=== PATIENT | female | born 1985 | race Caucasian/White ===

== ENCOUNTER → 2017-09-25 | Outpatient (CLI) | payer MEDICARE, OTHER ==
--- NOTE | 2017-09-26 09:51 | USB ---
Reason for exam: additional evaluation requested from abnormal screening. History: Patient is nulliparous. Family history of breast cancer in paternal grandmother at age 70. Physical Findings: Nurse did not find any significant physical abnormalities on exam. US Breast RT Right complete breast ultrasound includes all four quadrants, the retroareolar region and axilla. Finding demonstrates a 0.3 x 0.3 x 0.2cm oval, cystic lesion at 1 o'clock, a 0.4 x 0.5 x 0.3cm oval, cystic cluster at 4 o'clock and a 1.8 x 1.7 x 1.3cm node at the axilla. These results were verbally communicated with the patient and result sheet given to the patient on 09/25/17. ASSESSMENT: Probably benign, BI-RAD 3 RECOMMENDATION: Ultrasound of the right breast in 6 months.
== END | disposition home or self-care (01) ==
LOC: RADUSWWP 07:00
PROVIDERS: ATTEND Family Medicine
DX: N64.4 Mastodynia (principal); N63.10 Unspecified lump in the right breast, unspecified quadrant

== ENCOUNTER 2019-02-14 21:54 | Outpatient (CLI) | payer OTHER ==
[2019-02-14 23:19] LABS: Appearance,Urine Cloudy (Clear); Bacteria,Urine Occasional /hpf; Bilirubin,Urine Negative (Negative); Blood,Urine Negative (Negative); Color,Urine Yellow; Glucose,Urine (UA) Negative (Negative); Ketones,Urine 2+ (Negative); Leukocyte Esterase,Urine Trace (Negative); Mucus,Urine Occasional /hpf; Nitrite,Urine Negative (Negative); PH, Urine 5.5 (5.0-8.0); Protein,Urine Negative (Negative); RBC,Urine 1 /hpf (0-5); Specific Gravity,Urine 1.012 (1.001-1.035); Squamous Epithelial Cell,Urine 4 /hpf (0-4); Urobilinogen,Urine <2.0 mg/dL (<2.0); WBC,Urine 6 /hpf (0-5)
[2019-02-15] MEDS ORDERED: ONDANSETRON 4 MG/2 ML VIAL IVP STA (00:21)
[2019-02-15] MEDS ORDERED: LACTATED RINGERS 1,000 ML IV SCH (00:30)
[2019-02-15 00:50] LABS: Basophils # (A) 0.1 k/uL (0-0.2); Basophils % (A) 1 %; Eosinophils % (A) 0 %; HCT 37.8 % (34.0-46.0); HGB 12.6 gm/dL (11.4-16.0); Lymphocytes # (A) 0.6 k/uL (1.0-4.8); Lymphocytes % (A) 7 %; MCH 29.9 pg (25.0-35.0); MCHC 33.3 g/dL (31.0-37.0); MCV 89.9 fL (80.0-100.0); Mean Platelet Volume 8.2; Monocytes # (A) 0.2 k/uL (0-1.0); Monocytes % (A) 2 %; Neutrophils # (A) 8.2 k/uL (1.3-7.7); Neutrophils % (A) 90 %; Platelet Count 237 k/uL (150-450); RBC 4.21 m/uL (3.80-5.40); RDW 13.3 % (11.5-15.5); WBC 9.1 k/uL (3.8-10.6)
[2019-02-15 01:17] LABS: African American GFR (CKD) >90 (>60 ml/min/1.73 sqM); Anion Gap 11 mmol/L; Blood Urea Nitrogen 8 mg/dL (7-17); Calcium 9.3 mg/dL (8.4-10.2); Carbon Dioxide 19 mmol/L (22-30); Chloride 104 mmol/L (98-107); Glucose 112 mg/dL (74-99); Non-African American GFR(CKD) >90 (>60 ml/min/1.73 sqM); Potassium 3.8 mmol/L (3.5-5.1); Sodium 134 mmol/L (137-145)
[2019-02-15 01:27] VITALS: BP 126/66; PULSE 114; RESP 18; TEMP 97.6
--- NOTE | 2019-02-21 08:02 | P.MSEPDOC ---
Presenting Problems - Arrival Data Date of Arrival on Unit: 02/15/19 Time of Arrival on Unit: 21:54 Mode of Transport: Ambulatory - Complaint OB-Reason for Admission/Chief Complaint: Pain Medical History - Information : 2 Para: 0 Term: 0 : 0 Abortions: Spontaneous or Elective: 0 Number of Living Children: 0 - Gestational Age Gestational Age by JUWAN (wks/days): 21 Weeks and 6 Days Review of Systems - Review of Systems Constitutional: No problems Breast: No problems ENT: No problems Cardiovascular: No problems Respiratory: No problems Gastrointestinal: No problems Genitourinary: No problems Musculoskeletal: No problems Neurological: No problems Skin: No problems Vital Signs - Temperature Temperature: 97.6 F Temperature Source: Temporal Artery Scan - Pulse Right Brachial Pulse Rate: 114 Pulse Assessment Method: Automatic Cuff - Respirations Respiratory Rate: 18 Oxygen Delivery Method: Room Air - Blood Pressure Right Arm Blood Pressure: 126/66 Blood Pressure Mean: 86 Blood Pressure Source: Automatic Cuff Medical Screen Scoring (Pre) - Cervical Exam Dilation: Exam Deferred Effacement: Exam Deferred Membranes: Intact - Uterine Contractions Frequency: N/A - Maternal Vital Signs Maternal Temperature: N/A Maternal Blood Pressure: N/A Signs of Preeclampsia: N/A Maternal Respirations: N/A - Maternal Trauma Maternal Trauma: N/A - Assessment - Baby A Baseline FHR: 145 Heart Rate - NICHD Category: Category I (Normal) = 0 Position: N/A Station: N/A - Total Score - Baby A Total Score - Baby A: 0 - Total Score - Baby B Total Score - Baby B: 0 - Total Score - Baby C Total Score - Baby C: 0 - Level of Risk - Baby A Level of Risk - Baby A: Low (0-5) - Level of Risk - Baby B Level of Risk - Baby B: Low (0-5) - Level of Risk - Baby C Level of Risk - Baby C: Low (0-5) Physician Notification (Pre) - Physician Notified Physician Notified Date: 02/14/19 Physician Notified Time: 22:29 New Order Received: Yes - Notification Comment Comment: send ua, call with results Medical Screen Scoring (Post) - Cervical Exam Dilation: Exam Deferred Effacement: Exam Deferred Membranes: Intact - Uterine Contractions Frequency: N/A Duration: N/A Intensity: N/A - Maternal Vital Signs Maternal Temperature: N/A Signs of Preeclampsia: N/A Maternal Respirations: N/A - Pain Assessment Pain Scale Used: Numeric (1 - 10) Pain Intensity: 0 - Maternal Trauma Maternal Trauma: N/A - Assessment - Baby A Heart Rate: 145 Heart Rate - NICHD Category: Category I (Normal) = 0 Position: N/A Station: N/A - Total Score Total Score - Baby A: 0 Total Score - Baby B: 0 Total Score - Baby C: 0 - Post Treatment Level of Risk Post Treatment Level of Risk - Baby A: Low (0-5) Post Treatment Level of Risk - Baby B: Low (0-5) Post Treatment Level of Risk - Baby C: Low (0-5) Physician Notification (Post) - Physician Notified Physician Notified Date: 02/15/19 Physician Notified Time: 01:38 Physician/Practitioner Notified:: Dr. Peguero Spoke With: Dr. Peguero New Order Received: Yes - Notification Comment Comment: Pt was treated with 1 liter of LR, 4 mg of zofran iv, cbc and cmp, labs reported, pt feeling better, discharge pt home follow up at next scheduled Feb 25 Disposition - Disposition OB Disposition: Physician follow up in office, Triage, Discharge to home, Written follow up instructions reviewed Discharge Date: 02/15/19 Discharge Time: 01:55 I agree with the RN Medical Screening Exam: Yes Risk & Benefit of care provided described in d/c instruction: Yes Diagnosis: DEHYDRATION
== END 2019-02-15 01:55 | disposition home or self-care (01) ==
LOC: FBPOP 21:54
PROVIDERS: ATTEND Obstetrics & Gynecology
DX: O99.282 Endocrine, nutritional and metabolic diseases complicating pregnancy, second trimester (principal); Z3A.21 21 weeks gestation of pregnancy
CPT/HCPCS: 99214; 96361; 96374; 80048; 85025; 81001; J2405

== ENCOUNTER 2019-06-19 04:00 | Inpatient (IN) | payer MEDICARE, OTHER ==
[2019-06-19] MEDS ORDERED: METHYLERGONOVINE 0.2 MG/ML 1 ML AMP IM PRN (04:21)
[2019-06-19] MEDS ORDERED: CARBOPROST TROMETHAMINE 250 MCG/ML 1 ML AMP IM PRN (04:21)
[2019-06-19] MEDS ORDERED: TERBUTALINE 1 MG/ML VIAL SQ PRN (04:21)
[2019-06-19] MEDS ORDERED: LIDOCAINE 0.5% (PF) 5 MG/ML (50 ML SDV) SQ PRN (04:21)
[2019-06-19] MEDS ORDERED: OXYTOCIN 10 UNIT/ML 1 ML VIAL IM PRN (04:21)
[2019-06-19] MEDS: LACTATED RINGERS 1,000 ML IV SCH (04:30)
[2019-06-19] MEDS ORDERED: PENICILLIN G POTASSIUM 5,000,000 UNIT in DEXTROSE 5% IN WATER 100 ML IVPB ONE ×2 (04:30)
[2019-06-19] MEDS ORDERED: BUTORPHANOL 1 MG/ML 1 ML VIAL IV PRN (04:31)
[2019-06-19 04:40] LABS: Basophils % (A) 0 %; Eosinophils # (A) 0.1 k/uL (0-0.7); Eosinophils % (A) 1 %; HCT 46.1 % (34.0-46.0); HGB 15.3 gm/dL (11.4-16.0); Lymphocytes # (A) 1.5 k/uL (1.0-4.8); Lymphocytes % (A) 9 %; MCH 30.6 pg (25.0-35.0); MCHC 33.2 g/dL (31.0-37.0); MCV 92.2 fL (80.0-100.0); Mean Platelet Volume 8.6; Monocytes # (A) 0.3 k/uL (0-1.0); Monocytes % (A) 2 %; Neutrophils # (A) 14.6 k/uL (1.3-7.7); Neutrophils % (A) 87 %; Platelet Count 255 k/uL (150-450); RBC 5.01 m/uL (3.80-5.40); RDW 14.3 % (11.5-15.5); WBC 16.8 k/uL (3.8-10.6)
[2019-06-19 04:48] LABS: Glucose,Whole Blood 115 mg/dL (75-99)
--- NOTE | 2019-06-19 07:43 | P.HPOB ---
History of Present Illness H&P Date: 06/19/19 Chief Complaint: Strong regular uterine contractions This is a 34-year-old white female 2 para 0010 EDC 06/22/2019 at 39-4/7 weeks' gestation. Patient presents with strong regular uterine contractions, in active labor. Fetus is been active throughout the . Past medical history is significant for bipolar disorder, and positive HPV. Past surgical history tonsillectomy and adenoidectomy, cholecystectomy, appendectomy, hernia repair, LEEP procedure. Current medications vitamins daily. ALLERGIES Depakote, ALLERGIC reaction not listed. Family history significant for hypertension diabetes and depression. Reproductive history missed AB 2003. Social history former tobacco smoker one half pack per day, denies alcohol tobacco or drug use with . Patient is , is present. Obstetric history is significant for blood type O+, group B strep cultures positive. Rubella status immune. VDRL testing, urine culture, hepatitis B surface antigen, HIV testing, gonorrhea and chlamydia cultures all negative. Three-hour GTT consistent with gestational diabetes. On exam patient is 5 foot 2 inches, 224 pounds, blood pressure 116/63. General physical exam is within normal limits. Cervix is 9-1/2 cm dilated, vertex prese ntation, 100% effaced, 0 station. Artificial amniorrhexis reveals clear fluid. heart rate is consistent with reactive NST. Impression: 39-4/7 weeks intrauterine , active labor. All signs reassuring. Gestational diabetes, blood sugar on admission 1:15. Plan: Continue close maternal and surveillance. Anticipate normal spontaneous vaginal delivery. Review of Systems Constitutional: Reports as per HPI Past Medical History Past Medical History: Asthma, GERD/Reflux Additional Past Medical History / Comment(s): Hx of HPV stage 1, hx migraines, sports induced asthma, GDM 12/25/18 History of Any Multi-Drug Resistant Organisms: None Reported Past Surgical History: Adenoidectomy, Appendectomy, Hernia Repair, Tonsillectomy Additional Past Surgical History / Comment(s): surgery for HPV Past Anesthesia/Blood Transfusion Reactions: No Reported Reaction Past Psychological History: ADD/ADHD, Anxiety, Bipolar Smoking Status: Former smoker Past Alcohol Use History: Occasional Additional Past Alcohol Use History / Comment(s): smokes 1/2 PPD since age 12 Past Drug Use History: None Reported - Past Family History Mother Family Medical History: No Reported History Medications and Allergies Home Medications Medication Instructions Recorded Confirmed Type Koo-Cqpw-Gvbsy Acid 1 cap PO DAILY 12/25/18 06/19/19 History [-U Capsule (formulary)] Insulin Detemir (Levemir) [Levemir] 12 unit SQ HS 06/19/19 06/19/19 History Allergies Allergy/AdvReac Type Severity Reaction Status Date / Time divalproex sodium Allergy Swelling Verified 02/14/19 22:06 [From Depakote] Exam Vital Signs Temp Pulse Resp BP 06/19/19 04:26 96.9 F L 88 18 116/63 Intake and Output 06/18/19 06/19/19 06/19/19 22:59 06:59 14:59 Other: # Voids 1 Weight 101.605 kg See dictation under HPI please Results Result Diagrams: 06/19/19 04:30 Abnormal Lab Results - Last 24 Hours (Table) 06/19/19 06/19/19 Range/Units 04:30 04:46 WBC 16.8 H (3.8-10.6) k/uL Hct 46.1 H (34.0-46.0) % Neutrophils # 14.6 H (1.3-7.7) k/uL POC Glucose (mg/dL) 115 H (75-99) mg/dL Assessment and Plan Assessment: 39-4/7 weeks intrauterine , active spontaneous labor. Gestational diabetes on insulin, blood sugar 115. Plan: Continue close maternal and surveillance. Anticipate normal spontaneous vaginal delivery. Time with Patient: Less than 30
[2019-06-19] MEDS: OXYTOCIN 30 UNITS/500 ML NS 30 UNIT in SALINE 1 500ML.BAG IV SCH (08:40)
[2019-06-19] MEDS: PENICILLIN G POTASSIUM 2,500,000 UNIT in DEXTROSE 5% IN WATER 100 ML IVPB SCH ×2 (09:06)
[2019-06-19] MEDS ORDERED: SIMETHICONE 80 MG CHEWABLE PO PRN (09:34)
[2019-06-19] MEDS ORDERED: WITCH HAZEL 1 EACH MED..PAD TOPICAL PRN (09:34)
[2019-06-19] MEDS ORDERED: BENZOCAINE/MENTHOL SPRAY 1 GM/SPRAY AEROSOL TOPICAL PRN (09:34)
[2019-06-19] MEDS ORDERED: diphenhydrAMINE 50 MG CAP PO PRN (09:34)
[2019-06-19] MEDS ORDERED: diphenhydrAMINE 50 MG/ML 1 ML VIAL IVP PRN ×2 (09:34)
[2019-06-19] MEDS ORDERED: HYDROCORTISONE 2.5% RECTAL CREAM 30 GM TUBE RECTAL PRN (09:34)
[2019-06-19] MEDS ORDERED: ACETAMINOPHEN TAB 325 MG TAB PO PRN (09:34)
[2019-06-19] MEDS ORDERED: LANOLIN CREAM 5 GM TUBE TOPICAL PRN (09:34)
[2019-06-19] MEDS ORDERED: ZOLPIDEM 5 MG TAB PO PRN (09:34)
[2019-06-19] MEDS ORDERED: diphenhydrAMINE 25 MG CAP PO PRN (09:34)
--- NOTE | 2019-06-19 09:34 | P.PROBDLV ---
Vaginal Delivery Note - . Vaginal Delivery Note: This is a 34-year-old white female 2 para 0010 EDC 06/22/2019 at 39-4/7 weeks' gestation. Patient was initially scheduled for induction but presented in active spontaneous labor from home. is remarkable for gestational diabetes, on insulin, admitting blood sugar 1:15. Fetus active throughout the . She denied vaginal bleeding or fluid leakage. Please see dictated history and physical for details. On admission patient was 6 cm dilated. Artificial amniorrhexis revealed meconium-stained fluid. A small amount of oxytocin augmentation was given. She progressed well through the first stage of labor and became completely dilated at 0824 hours. heart tones were reassuring throughout the first and second stages of labor. Perineal body was prepped and draped in usual sterile fashion. With excellent maternal expulsive efforts the infant's head delivered occiput anterior. Baby restituted accordingly. The right or anterior shoulder was delivered from underneath the pubic symphysis at which time the oropharynx, nasopharynx, and external nares were all bulb suctioned on the perineal body. Patient was officially delivered of a liveborn female infant at 0912 hours. Umbilical cord was doubly clamped and ligated, she was handed to waiting nurses for evaluation where scores of 9 and 9 at one and 5 minutes respectively were given. Placenta delivered spontaneously, it was inspected and noted to be intact with trivascular cord at 0915 hours. Uterus is then massaged. Careful inspection of the cervix, vagina, perineum, periurethral, and perirectal areas revealed a small second-degree midline perineal laceration. This was repaired in the usual fashion using 3-0 repeat suture. Excellent reapproximation was noted. All sponge needle and enhancement counts are correct at the end of the procedure. Patient and her family are allowed to begin the bonding experience in the LDR. Estimated blood loss 300 mL's.
[2019-06-19] MEDS ORDERED: OXYTOCIN 20 UNITS/1000 ML NS 1,000 ML IV SCH (09:45)
[2019-06-19] MEDS: IBUPROFEN 600 MG TAB PO PRN ×2 (11:14→17:47)
[2019-06-19 14:07] LABS: Hemoglobin A1C 5.7 % (4.0-6.0)
[2019-06-19] MEDS: SENNOSIDES-DOCUSATE SODIUM 1 EACH TAB PO SCH (20:10)
[2019-06-20] MEDS: IBUPROFEN 600 MG TAB PO PRN ×2 (02:13→10:28)
[2019-06-20] MEDS: SENNOSIDES-DOCUSATE SODIUM 1 EACH TAB PO SCH (07:31)
[2019-06-20 07:43] LABS: Basophils % (A) 0 %; Eosinophils % (A) 0 %; HCT 39.7 % (34.0-46.0); HGB 12.9 gm/dL (11.4-16.0); Lymphocytes # (A) 2.3 k/uL (1.0-4.8); Lymphocytes % (A) 20 %; MCH 30.4 pg (25.0-35.0); MCHC 32.5 g/dL (31.0-37.0); MCV 93.5 fL (80.0-100.0); Mean Platelet Volume 8.9; Monocytes # (A) 0.3 k/uL (0-1.0); Monocytes % (A) 3 %; Neutrophils # (A) 8.6 k/uL (1.3-7.7); Neutrophils % (A) 76 %; Platelet Count 232 k/uL (150-450); RBC 4.24 m/uL (3.80-5.40); RDW 14.6 % (11.5-15.5); WBC 11.4 k/uL (3.8-10.6)
--- NOTE | 2019-06-20 08:27 | P.DS ---
Providers Date of admission: 06/19/19 04:00 Expected date of discharge: 06/20/19 Attending physician: Nga Peguero Primary care physician: Stated None Hospital Course: This is a 34-year-old white female 2 para 0010 EDC 07/09/2019 at 39-4/7 weeks' gestation. Patient presented in active spontaneous labor. is remarkable for gestational diabetes, on insulin with good blood sugar control. Blood sugar on admission 1:15. Rubella status immune, blood type O+. Rupee strep cultures positive. Please see admitting H&P for details. Artificial amniorrhexis revealed clear fluid. Patient went on to deliver a liveborn female with scores of 9 and 9 at one and 5 minutes respectively. There was a small second-degree laceration easily repaired, estimated blood loss 300 mL's. weighed 3100 g or 6 lbs. 13 oz. Please see dictated delivery note for details. This morning the patient is doing well. She is voiding, ambulating and passing flatus without difficulty. Vital signs are stable and she is afebrile. Fundus is firm and in the midline, symmetric and 18 week size. Extremities are negative for edema. Chest is clear in all nails. Winger infant is doing well. Patient is judged to be in very good condition for discharge home. She will follow-up with me in the office in 6 weeks. I have reminded her no intercourse, tampons or douching. I have given her prescription for a double electric breast pump, breast-feeding appears to be going well. She will continue taking her vitamins daily. She will use [id number] Advil or Aleve, or Motrin as needed for pain. I've asked her to call me with any fevers shakes or chills, foul smelling or copious lochia, with the passage of large blood clots with any pain not alleviated by [id number] products, or indeed with any concerns. We will proceed with a 2 hour GTT for blood sugar testing at the 6 week visit. Patient Condition at Discharge: Good Plan - Discharge Summary Discharge Rx Participant: No New Discharge Prescriptions: No Action Xvj-Ftck-Asyyc Acid [-U Capsule (formulary)] 1 cap PO DAILY Insulin Detemir (Levemir) [Levemir] 12 unit SQ HS Discharge Medication List Tzy-Cxpr-Sznxh Acid [-U Capsule (formulary)] 1 cap PO DAILY 12/25/18 [History] Insulin Detemir (Levemir) [Levemir] 12 unit SQ HS 06/19/19 [History] Follow up Appointment(s)/Referral(s): Nga Peguero MD [STAFF PHYSICIAN] - 6 Weeks
[2019-06-20 08:49] VITALS: BP 115/76; PULSE 81; RESP 18; TEMP 99.9
[2019-06-20] MEDS: PENICILLIN G POTASSIUM 2,500,000 UNIT in DEXTROSE 5% IN WATER 100 ML IVPB SCH ×6 (08:54→09:07)
[2019-06-20] MEDS: LACTATED RINGERS 1,000 ML IV SCH ×2 (08:55→08:56)
[2019-06-20] MEDS: OXYTOCIN 30 UNITS/500 ML NS 30 UNIT in SALINE 1 500ML.BAG IV SCH (08:57)
== END 2019-06-20 10:39 | disposition home or self-care (01) | DRG 806 ==
LOC: 4FBP 04:00
PROVIDERS: ADMIT Obstetrics & Gynecology; ATTEND Obstetrics & Gynecology
PROC: 10E0XZZ Delivery of Products of Conception, External Approach (ICD-10-PCS; principal; 2019-06-19)
PROC: 0KQM0ZZ Repair Perineum Muscle, Open Approach (ICD-10-PCS; principal; 2019-06-19)
DX: O24.424 Gestational diabetes mellitus in childbirth, insulin controlled (principal); O99.354 Diseases of the nervous system complicating childbirth; Z37.0 Single live birth; O77.0 Labor and delivery complicated by meconium in amniotic fluid; O70.1 Second degree perineal laceration during delivery; G43.909 Migraine, unspecified, not intractable, without status migrainosus; K21.9 Gastro-esophageal reflux disease without esophagitis; O99.62 Diseases of the digestive system complicating childbirth; Z86.19 Personal history of other infectious and parasitic diseases; Z87.09 Personal history of other diseases of the respiratory system; Z86.59 Personal history of other mental and behavioral disorders; Z87.891 Personal history of nicotine dependence; Z3A.39 39 weeks gestation of pregnancy; Z90.49 Acquired absence of other specified parts of digestive tract; Z79.4 Long term (current) use of insulin; Z81.8 Family history of other mental and behavioral disorders; Z82.49 Family history of ischemic heart disease and other diseases of the circulatory system; Z83.3 Family history of diabetes mellitus
CPT/HCPCS: 83036; 85025; 86850; 86900; 86901

== ENCOUNTER → 2020-08-02 | Outpatient (CLI) | payer OTHER ==
--- NOTE | 2020-08-02 08:48 | US ---
EXAMINATION TYPE: US axilla RT DATE OF EXAM: 08/02/2020 COMPARISON: NONE CLINICAL HISTORY: R22.31 lump right axilla. Axilla lump / thickening x years. Patient states she swe ats more in the right axilla compared to left. Area of concern scanned. No prominent masses or lesions seen. Contralateral images seen. IMPRESSION: There is no correlate for the palpable abnormality of the right axilla. Clinical correlation is recom mended. If there is any palpable abnormality of the breast, bilateral diagnostic mammogram is recomme nded given the patient is over age 30. Otherwise, mammograms beginning at age 40 are recommended. BI-RADS 1, negative.
== END | disposition home or self-care (01) ==
LOC: RADUSWWP 07:32
PROVIDERS: ATTEND Family Medicine
DX: R22.31 Localized swelling, mass and lump, right upper limb (principal)

== ENCOUNTER 2021-05-18 07:14 | Inpatient (IN) | payer OTHER ==
[2021-05-18] MEDS ORDERED: PENICILLIN G POTASSIUM 5,000,000 UNIT in DEXTROSE 5% IN WATER 100 ML IVPB STA ×2 (07:44)
[2021-05-18] MEDS ORDERED: METHYLERGONOVINE 0.2 MG/ML 1 ML AMP IM PRN (07:44)
[2021-05-18] MEDS ORDERED: CARBOPROST TROMETHAMINE 250 MCG/ML 1 ML AMP IM PRN (07:44)
[2021-05-18] MEDS ORDERED: LIDOCAINE 1% (PF) 10 MG/ML (30 ML SDV) SQ PRN (07:44)
[2021-05-18] MEDS ORDERED: TERBUTALINE 1 MG/ML VIAL SQ PRN (07:44)
[2021-05-18] MEDS ORDERED: OXYTOCIN 10 UNIT/ML 1 ML VIAL IM PRN (07:44)
[2021-05-18] MEDS ORDERED: LACTATED RINGERS 1,000 ML IV SCH (07:45)
--- NOTE | 2021-05-18 07:57 | P.HPOB ---
History of Present Illness H&P Date: 05/18/21 Chief Complaint: Strong regular uterine contractions This is a 35-year-old white female 3 para 1011 EDC 05/22/2021 at 38-5/7 weeks' gestation. Patient presents with strong regular uterine contractions from home. She denies fluid leakage or vaginal bleeding. Her history is significant for gestational diabetes, home blood sugars have been in the normal range. Past obstetric history is significant for positive group B strep cultures, blood type O positive, rubella status immune. Urine culture, hepatitis B surface antigen, HIV testing, gonorrhea Chlamydia cultures all negative. One-hour Glucola consistent with gestational diabetes. Past medical history significant for bipolar disorder. Past surgical history adenoidectomy and tonsillectomy, appendectomy, cholecystectomy, LEEP procedure, herniorrhaphy. Current medications vitamins daily, baby aspirin daily. ALLERGIES include Depakote, unknown reaction. Familly history is essentially unremarkable, hypertension diabetes and depression noted. Reproductive history vaginal delivery 2019, 6 lbs. 9 oz. female , uncomplicated. Social history patient is a former smoker, quit with , she is , denies alcohol or drug use. On exam patient is 5 foot 3 inches, 215 pounds, vital signs are stable and she is afebrile. The general physical exam is within normal limits. Cervix is 6-7 cm dilated, 100% effaced, -1 station, vertex presentation, intact. heart rate is consistent with reactive NST. Impression: 38-5/7 weeks intrauterine , advanced maternal age, gestational diabetes, in active labor. All signs reassuring. Plan: Penicillin G will be given. Artificial amniorrhexis. Close maternal and surveillance. Analgesic options reviewed. Anticipate normal spontaneous vaginal delivery. Review of Systems Constitutional: Reports as per HPI Past Medical History Past Medical History: Asthma, GERD/Reflux Additional Past Medical History / Comment(s): Hx of HPV stage 1, hx migraines, sports induced asthma, GDM 12/25/18 History of Any Multi-Drug Resistant Organisms: None Reported Past Surgical History: Adenoidectomy, Appendectomy, Hernia Repair, Tonsillectomy Additional Past Surgical History / Comment(s): surgery for HPV Past Anesthesia/Blood Transfusion Reactions: No Reported Reaction Past Psychological History: ADD/ADHD, Anxiety, Bipolar Past Alcohol Use History: Occasional Additional Past Alcohol Use History / Comment(s): smokes 1/2 PPD since age 12 Past Drug Use History: None Reported - Past Family History Mother Family Medical History: No Reported History Medications and Allergies Home Medications Medication Instructions Recorded Confirmed Type Nlg-Emkl-Rpqpj Acid 1 cap PO DAILY 12/25/18 05/18/21 History [-U Capsule (formulary)] Aspirin 1 tab PO DAILY 05/18/21 05/18/21 History Allergies Allergy/AdvReac Type Severity Reaction Status Date / Time divalproex sodium Allergy Swelling Verified 05/18/21 07:42 [From Depakote] Exam Intake and Output 05/17/21 05/18/21 05/18/21 22:59 06:59 14:59 Other: Weight 94.801 kg See dictation under HPI please Assessment and Plan Assessment: 38-5/7 weeks intrauterine , advanced maternal age, gestational diabetic, in active labor. All signs reassuring. Plan: We'll proceed with admission, artificial amniorrhexis, penicillin G. Close maternal and surveillance. Analgesic options reviewed. Anticipate normal spontaneous vaginal delivery. Time with Patient: Less than 30
[2021-05-18 08:21] LABS: Basophils % (A) 0 %; Eosinophils # (A) 0.1 k/uL (0-0.7); Eosinophils % (A) 1 %; HCT 48.1 % (34.0-46.0); HGB 15.4 gm/dL (11.4-16.0); Lymphocytes # (A) 2.2 k/uL (1.0-4.8); Lymphocytes % (A) 13 %; MCH 31.2 pg (25.0-35.0); MCHC 31.9 g/dL (31.0-37.0); MCV 97.8 fL (80.0-100.0); Monocytes # (A) 0.4 k/uL (0-1.0); Monocytes % (A) 2 %; Neutrophils # (A) 14.3 k/uL (1.3-7.7); Neutrophils % (A) 83 %; Platelet Count 269 k/uL (150-450); RBC 4.92 m/uL (3.80-5.40); WBC 17.2 k/uL (3.8-10.6)
[2021-05-18 08:25] VITALS: RESP 16
[2021-05-18 08:26] LABS: Glucose,Whole Blood 101 mg/dL (75-99)
[2021-05-18] MEDS ORDERED: ZOLPIDEM 5 MG TAB PO PRN (09:04)
[2021-05-18] MEDS ORDERED: BENZOCAINE/MENTHOL SPRAY 1 GM/SPRAY AEROSOL TOPICAL PRN (09:04)
[2021-05-18] MEDS ORDERED: SIMETHICONE 80 MG CHEWABLE PO PRN (09:04)
[2021-05-18] MEDS ORDERED: HYDROCORTISONE 2.5% RECTAL CREAM 30 GM TUBE RECTAL PRN (09:04)
[2021-05-18] MEDS ORDERED: diphenhydrAMINE 50 MG/ML 1 ML VIAL IVP PRN ×2 (09:04)
[2021-05-18] MEDS ORDERED: diphenhydrAMINE 25 MG CAP PO PRN (09:04)
[2021-05-18] MEDS ORDERED: diphenhydrAMINE 50 MG CAP PO PRN (09:04)
[2021-05-18] MEDS ORDERED: LANOLIN CREAM 5 GM TUBE TOPICAL PRN (09:04)
--- NOTE | 2021-05-18 09:04 | P.PROBDLV ---
Vaginal Delivery Note - . Vaginal Delivery Note: This is a 35-year-old female 2 para 1001 EDC 05/27/2021 at 38-5/7 weeks' gestation who presented from home with active spontaneous labor. History is significant for gestational diabetes, blood type O+, group B strep cultures positive. Please see dictated history and physical for details. On admission penicillin G was given 5 million units. Artificial amniorrhexis revealed clear fluid. She became completely dilated and began the second stage of labor. Quickly. The perineal body was prepped and draped in the usual sterile fashion. Infant's head delivered occiput anterior and restituted accordingly. There was a nuchal cord 1 that was reduced. The left or anterior shoulder was delivered from underneath the pubic symphysis at which time the oropharynx, nasopharynx, and external nares were bulb suctioned. Patient was officially delivered of a liveborn male at 0852 hours. Umbilical cord was doubly clamped and ligated, he was handed to waiting nurses for evaluation where scores of 9 and 9 at one and 5 minutes respectively were given. The placenta delivered spontaneously, intact with trivascular cord at 0854 hours. Perineal body was then redraped. Careful inspection of cervix, vagina, perineum, periurethral, and perirectal areas revealed a first-degree laceration. This was injected with percent lidocaine and repaired in the usual fashion with repeat suture. Infant weighed 6 pounds 7.5 ounces or 2935 g. Estimate a blood loss 200 mL's. Fundus is firm and in the midline, symmetric and 18 week size upon completion of delivery. Patient is requesting circumcision for her son.
[2021-05-18] MEDS ORDERED: PENICILLIN G POTASSIUM 2,500,000 UNIT in DEXTROSE 5% IN WATER 100 ML IVPB SCH ×2 (12:00)
[2021-05-18] MEDS ORDERED: ACETAMINOPHEN TAB 325 MG TAB PO PRN (18:25)
[2021-05-18] MEDS: IBUPROFEN 600 MG TAB PO PRN (18:30)
[2021-05-18] MEDS: SENNOSIDES-DOCUSATE SODIUM 1 EACH TAB PO SCH (21:18)
[2021-05-19] MEDS: IBUPROFEN 600 MG TAB PO PRN (04:17)
[2021-05-19 05:34] VITALS: PULSE 78
[2021-05-19 07:27] LABS: Basophils % (A) 0 %; Eosinophils # (A) 0.1 k/uL (0-0.7); Eosinophils % (A) 1 %; HCT 41.2 % (34.0-46.0); HGB 13.1 gm/dL (11.4-16.0); Lymphocytes # (A) 3.2 k/uL (1.0-4.8); Lymphocytes % (A) 26 %; MCH 31.2 pg (25.0-35.0); MCHC 31.9 g/dL (31.0-37.0); MCV 97.7 fL (80.0-100.0); Mean Platelet Volume 8.1; Monocytes # (A) 0.4 k/uL (0-1.0); Monocytes % (A) 3 %; Neutrophils # (A) 8.6 k/uL (1.3-7.7); Neutrophils % (A) 70 %; Platelet Count 246 k/uL (150-450); RBC 4.21 m/uL (3.80-5.40); RDW 13.9 % (11.5-15.5); WBC 12.4 k/uL (3.8-10.6)
[2021-05-19] MEDS: SENNOSIDES-DOCUSATE SODIUM 1 EACH TAB PO SCH (07:52)
--- NOTE | 2021-05-19 08:32 | P.DS ---
Providers Date of admission: 05/18/21 07:35 Expected date of discharge: 05/19/21 Attending physician: Nga Peguero Primary care physician: Stated None Hospital Course: This is a 35-year-old female 2 para 1001 EDC 05/27/2021 at 3 8-5/7 weeks' gestation who presented with spontaneous amniorrhexis at home, clear fluid. In active labor. Group strep cultures positive, rubella status immune. remarkable for gestational diabetes, diet controlled. Please see my dictated history and physical for details. Patient went on to deliver rapidly a liveborn male infant with scores of 9 and 9 at one and 5 minutes respectively. There was a nuchal cord 1 that was reduced. weighed 6 pounds 7.5 ounces or 2935 g. Perineal body was intact. Please see dictated delivery note for details. This morning the patient is doing well. She is voiding, and bleeding, passing flatus without difficulty. Vital signs are stable and she is afebrile. infant is doing well, circumcision has been performed. Patient is judged to be in very good condition for discharge home. Briefly discussed contraceptive options and we will discuss this further in the office. She will use Advil, Motrin or Aleve as needed for pain. She'll call with any fevers shakes or chills, foul smelling or copious lochia, with any pain not alleviated by cgtn-[id number] products, or indeed with any concerns. infant will follow-up with social insurance adviser as per recommendations. Assessment: Doing well first day Patient Condition at Discharge: Good Plan - Discharge Summary Discharge Rx Participant: No New Discharge Prescriptions: No Action Wud-Pefc-Cenvf Acid [-U Capsule (formulary)] 1 cap PO DAILY Aspirin 1 tab PO DAILY Discharge Medication List Bbl-Sflj-Budau Acid [-U Capsule (formulary)] 1 cap PO DAILY 12/25/18 [History] Aspirin 1 tab PO DAILY 05/18/21 [History] Follow up Appointment(s)/Referral(s): Nga Peguero MD [STAFF PHYSICIAN] - 6 Weeks
[2021-05-19 13:22] VITALS: BP 118/72; TEMP 98
== END 2021-05-19 13:13 | disposition home or self-care (01) | DRG 807 ==
LOC: FBPOP 07:14 → 4FBP 07:35
PROVIDERS: ADMIT Obstetrics & Gynecology; ATTEND Obstetrics & Gynecology
PROC: 10E0XZZ Delivery of Products of Conception, External Approach (ICD-10-PCS; principal; 2021-05-18)
PROC: 0HQ9XZZ Repair Perineum Skin, External Approach (ICD-10-PCS; 2021-05-18)
PROC: 4A0HXCZ Measurement of Products of Conception, Cardiac Rate, External Approach (ICD-10-PCS; 2021-05-18)
PROC: 10907ZC Drainage of Amniotic Fluid, Therapeutic from Products of Conception, Via Natural or Artificial Opening (ICD-10-PCS; 2021-05-18)
DX: O99.824 Streptococcus B carrier state complicating childbirth (principal); Z37.0 Single live birth; F31.9 Bipolar disorder, unspecified; O69.81X0 Labor and delivery complicated by cord around neck, without compression, not applicable or unspecified; O70.0 First degree perineal laceration during delivery; O99.354 Diseases of the nervous system complicating childbirth; O24.420 Gestational diabetes mellitus in childbirth, diet controlled; F41.9 Anxiety disorder, unspecified; O99.52 Diseases of the respiratory system complicating childbirth; J45.990 Exercise induced bronchospasm; F90.9 Attention-deficit hyperactivity disorder, unspecified type; O16.4 Unspecified maternal hypertension, complicating childbirth; G43.909 Migraine, unspecified, not intractable, without status migrainosus; O99.62 Diseases of the digestive system complicating childbirth; K21.9 Gastro-esophageal reflux disease without esophagitis; O99.344 Other mental disorders complicating childbirth; Z3A.38 38 weeks gestation of pregnancy; Z79.82 Long term (current) use of aspirin; Z87.891 Personal history of nicotine dependence; Z88.8 Allergy status to other drugs, medicaments and biological substances; Z90.49 Acquired absence of other specified parts of digestive tract; Z87.19 Personal history of other diseases of the digestive system; Z86.32 Personal history of gestational diabetes; Z87.42 Personal history of other diseases of the female genital tract
CPT/HCPCS: 59025; 83036; 85025; 86850; 86900; 86901; 99213

== ENCOUNTER → 2022-05-01 | Outpatient (CLI) | payer OTHER ==
--- NOTE | 2022-05-01 09:54 | USB ---
Reason for Exam: Clinical finding. Patient History: Menarche at age 8. Patient has no children. Patient used Hormonal Contraceptives for 2 years. Paternal grandmother had breast cancer, age 70. Risk Values: Lennie 5 year model risk: 0.6%. NCI Lifetime model risk: 12.2%. Technique: Method: Targeted. Prior Study Comparison: 07/12/2015 Bilateral Diagnostic Mammogram, [facility]. Findings: The axilla of the right breast was scanned. Ultrasound imaging of the right axilla. Redemonstration of lymph node with fatty hilum not significantly changed from 2018. Overall Assessment: Benign, BI-RAD 2 Management: Screening Mammogram of both breasts in 1 year. A clinical breast exam by your physician is recommended on an annual basis and results should be correlated with mammographic findings. This exam should not preclude additional follow-up of suspicious palpable abnormalities. Results were given to the patient verbally at the time of exam. Electronically signed and approved by: Alessandro Moseley DO
--- NOTE | 2022-05-02 15:19 | MM ---
Reason for Exam: Clinical finding. Last mammogram was performed 6 year(s) and 10 month(s) ago. Indicated Problems: Lump or thickening of the right side for 7 Year(s). Patient History: Menarche at age 8. Patient has no children. Patient used Hormonal Contraceptives for 2 years. Paternal grandmother had breast cancer, age 70. Last menstrual period: 04/24/2022 Risk Values: Lennie 5 year model risk: 0.6%. NCI Lifetime model risk: 12.2%. Prior Study Comparison: 07/12/2015 Bilateral Diagnostic Mammogram, [facility]. 09/25/2017 Right Diagnostic Ultrasound, [facility]. Tissue Density: The breast tissue is heterogeneously dense. This may lower the sensitivity of mammography. Findings: Analyzed By CAD. No suspicious masses, calcifications or distortions. Overall Assessment: Incomplete: need additional imaging evaluation, BI-RAD 0 Management: Diagnostic Breast Ultrasound of the right breast. A clinical breast exam by your physician is recommended on an annual basis and results should be correlated with mammographic findings. This exam should not preclude additional follow-up of suspicious palpable abnormalities. Results were given to the patient verbally at the time of exam. Electronically signed and approved by: Alessandro Moseley DO
== END | disposition home or self-care (01) ==
LOC: RADMAMWWP 08:48
PROVIDERS: ATTEND Family Medicine
DX: R92.8 Other abnormal and inconclusive findings on diagnostic imaging of breast (principal); N63.10 Unspecified lump in the right breast, unspecified quadrant; Z80.3 Family history of malignant neoplasm of breast
CPT/HCPCS: 77062; 77066

== ENCOUNTER → 2023-11-01 | Outpatient (CLI) | payer OTHER ==
--- NOTE | 2023-11-01 14:40 | MM ---
Reason for Exam: Screening (asymptomatic). Last mammogram was performed 1 year(s) and 6 month(s) ago. Patient History: Menarche at age 8. First Full-Term at age 34. Late child-bearing (after 28). Premenopausal. Patient used Hormonal Contraceptives for 2 years. Paternal grandmother had breast cancer, age 70. Last menstrual period: 10/25/2023 Risk Values: Lennie 5 year model risk: 0.8%. NCI Lifetime model risk: 14.8%. Prior Study Comparison: 07/12/2015 Bilateral Diagnostic Mammogram, [facility]. 05/01/2022 Bilateral MG 3D diag mammo w/cad MATHEUS, [facility]. 05/01/2022 Right US breast axilla RT, [facility]. Tissue Density: There are scattered areas of fibroglandular density. Findings: Analyzed By CAD. There is no suspicious group of microcalcifications or new suspicious mass in either breast. Overall Assessment: Negative, BI-RAD 1 Management: Screening Mammogram of both breasts in 1 year. . Patient should continue monthly self-breast exams. A clinical breast exam by your physician is recommended on an annual basis. This exam should not preclude additional follow-up of suspicious palpable abnormalities. Note on Lennie scores and lifetime risk: 1. A Lennie score greater than 3% is considered moderate risk. If this is the case, consider specialist referral to assess eligibility for a risk reducing agent. 2. If overall lifetime risk for the development of breast cancer is 20% or higher, the patient may qualify for future screening with alternating mammogram and breast MRI. Electronically signed and approved by: Rogerio Wilder M.D. Radiologis
== END | disposition home or self-care (01) ==
LOC: RADMAMWWP 07:11
PROVIDERS: ATTEND Family Medicine
DX: Z12.31 Encounter for screening mammogram for malignant neoplasm of breast
CPT/HCPCS: 77067